=== PATIENT | male | born 2005 | race African-American/Black ===

== ENCOUNTER 2023-10-06 09:46 | Emergency (ER) | payer OTHER ==
[2023-10-06 09:51] VITALS: RESP 16; BMI 25.8
[2023-10-06] MEDS ORDERED: IBUPROFEN 600 MG TABLET (FP) PO ONE ×2 (10:04→10:11)
[2023-10-06] MEDS ORDERED: DEXAMETHASONE SOD PHOSPHATE 10 MG/1 ML VIAL PO ONE (10:04)
[2023-10-06] MEDS ORDERED: DEXAMETHASONE SOD PHOSPHATE 10 MG/1 ML VIAL ONE (10:11)
[2023-10-06 11:06] VITALS: BP 123/80; PULSE 89; TEMP 99.5
== END 2023-10-06 11:28 | disposition home or self-care (01) ==
LOC: FER 09:46
DX: J02.9 Acute pharyngitis, unspecified (principal); R09.81 Nasal congestion; M79.10 Myalgia, unspecified site; R05.9 Cough, unspecified; J06.9 Acute upper respiratory infection, unspecified; Z20.822 Contact with and (suspected) exposure to COVID-19
CPT/HCPCS: 0241U-QW; 87651; 99283-25; J1100